=== PATIENT | male | born 1950 | race Caucasian/White ===

== ENCOUNTER 2021-02-01 03:56 | Inpatient (IN) | payer MEDICARE ==
[2021-02-01 04:12] VITALS: PULSE 70
[2021-02-01 04:40] LABS: Basophils % (A) 0 %; Eosinophils % (A) 0 %; HCT 41.7 % (39.0-53.0); HGB 13.9 gm/dL (13.0-17.5); Lymphocytes # (A) 0.6 k/uL (1.0-4.8); Lymphocytes % (A) 7 %; MCH 31.4 pg (25.0-35.0); MCHC 33.4 g/dL (31.0-37.0); MCV 94.2 fL (80.0-100.0); Mean Platelet Volume 7.9; Monocytes # (A) 0.3 k/uL (0-1.0); Monocytes % (A) 4 %; Neutrophils # (A) 7.4 k/uL (1.3-7.7); Neutrophils % (A) 88 %; Platelet Count 118 k/uL (150-450); RBC 4.43 m/uL (4.30-5.90); RDW 14.7 % (11.5-15.5); WBC 8.5 k/uL (3.8-10.6)
--- NOTE | 2021-02-01 04:45 | XR ---
EXAMINATION TYPE: XR chest 1V portable DATE OF EXAM: 02/01/2021 COMPARISON: NONE HISTORY: Short of breath TECHNIQUE: Single view FINDINGS: Heart is enlarged. There is some coarsening of the interstitial markings. There is left axi llary pacemaker. There is linear density at the lung bases consistent with atelectasis. IMPRESSION: No heart failure. Atelectasis at the lung bases. Cardiomegaly.
--- NOTE | 2021-02-01 04:48 | ED ---
SOB HPI - General Chief Complaint: Shortness of Breath Stated Complaint: JAVIER Time Seen by Provider: 02/01/21 04:05 Source: EMS Mode of arrival: EMS Limitations: no limitations - History of Present Illness Initial Comments: This patient is 70-year-old man with history of COPD and CHF who presents to be evaluated for dyspnea. The patient states that his breathing has not been normal for a number of days, was getting progressively worse and then tonight became worse. Patient had not noted fever or chills. There is no productive cough. No chest pain. No change in bowel movements or urination. No leg pain or swelling. Patient scheduled to have watchman device implanted tomorrow at [facility]. Complaint: shortness of breath -: days(s) Severity scale (1-10): 0 Consistency: constant Improves With: upright position Worsens With: lying flat Known History Of: COPD, congestive heart failure Associated Symptoms: other (Headache) Treatments Prior to Arrival: oxygen, NIPPV - Related Data Allergies Allergy/AdvReac Type Severity Reaction Status Date / Time No Known Allergies Allergy Verified 02/01/21 04:12 Review of Systems ROS Statement: Those systems with pertinent positive or pertinent negative responses have been documented in the HPI. ROS Other: All systems not noted in ROS Statement are negative. Constitutional: Reports: chills. Denies: fever Respiratory: Reports: cough, dyspnea. Denies: wheezes Cardiovascular: Reports: orthopnea. Denies: chest pain, palpitations, edema, syncope Gastrointestinal: Denies: abdominal pain, nausea, vomiting, diarrhea Genitourinary: Denies: dysuria, hematuria Musculoskeletal: Denies: back pain Skin: Denies: rash Neurological: Denies: headache Past Medical History Past Medical History: Heart Failure, COPD History of Any Multi-Drug Resistant Organisms: None Reported Past Surgical History: Bowel Resection, Pacemaker Past Psychological History: No Psychological Hx Reported Smoking Status: Never smoker Past Alcohol Use History: None Reported Past Drug Use History: None Reported General Exam Limitations: no limitations General appearance: alert, in distress Head exam: Present: atraumatic, normocephalic Eye exam: Present: normal appearance. Absent: scleral icterus, conjunctival injection ENT exam: Present: normal oropharynx Neck exam: Present: normal inspection Respiratory exam: Present: respiratory distress, wheezes, rales (Bilateral bases), accessory muscle use, decreased breath sounds. Absent: rhonchi, stridor Cardiovascular Exam: Present: regular rate, normal rhythm, normal heart sounds. Absent: systolic murmur, diastolic murmur, rubs, gallop GI/Abdominal exam: Present: soft. Absent: distended, tenderness, guarding, rebound, rigid, mass Extremities exam: Present: normal inspection, normal capillary refill, pedal edema. Absent: calf tenderness Back exam: Present: normal inspection. Absent: CVA tenderness (R), CVA tenderness (L) Neurological exam: Present: alert Skin exam: Present: warm, dry, intact, normal color. Absent: rash Course Vital Signs 02/01/21 03:58 Temperature 99.8 F H Pulse Rate 70 Respiratory 20 Rate Blood Pressure 139/90 O2 Sat by Pulse 94 L Oximetry - Reevaluation(s) Reevaluation #1: 02/01/21 06:05 At family request, I discussed the patient's case with the transfer team for [facility], and they are not able to accept the patient for transfer as they are over capacity. The patient and family are kept updated on the situation. Medical Decision Making - Lab Data Result diagrams: 02/01/21 04:22 02/01/21 04:22 Lab Results 02/01/21 02/01/21 02/01/21 Range/Units 04:22 04:22 04:22 WBC 8.5 (3.8-10.6) k/uL RBC 4.43 (4.30-5.90) m/uL Hgb 13.9 (13.0-17.5) gm/dL Hct 41.7 (39.0-53.0) % MCV 94.2 (80.0-100.0) fL MCH 31.4 (25.0-35.0) pg MCHC 33.4 (31.0-37.0) g/dL RDW 14.7 (11.5-15.5) % Plt Count 118 L (150-450) k/uL MPV 7.9 Neutrophils % 88 % Lymphocytes % 7 % Monocytes % 4 % Eosinophils % 0 % Basophils % 0 % Neutrophils # 7.4 (1.3-7.7) k/uL Lymphocytes # 0.6 L (1.0-4.8) k/uL Monocytes # 0.3 (0-1.0) k/uL Eosinophils # 0.0 (0-0.7) k/uL Basophils # 0.0 (0-0.2) k/uL PT 12.3 H (9.0-12.0) sec INR 1.2 H (<1.2) APTT 25.2 (22.0-30.0) sec D-Dimer 0.56 (<0.60) mg/L FEU Sodium 131 L (137-145) mmol/L Potassium 4.5 (3.5-5.1) mmol/L Chloride 94 L (98-107) mmol/L Carbon Dioxide 26 (22-30) mmol/L Anion Gap 11 mmol/L BUN 22 H (9-20) mg/dL Creatinine 0.74 (0.66-1.25) mg/dL Est GFR (CKD-EPI)AfAm >90 (>60 ml/min/1.73 sqM) Est GFR (CKD-EPI)NonAf >90 (>60 ml/min/1.73 sqM) Glucose 159 H (74-99) mg/dL Plasma Lactic Acid Olivier (0.7-2.0) mmol/L Calcium 9.0 (8.4-10.2) mg/dL Total Bilirubin 2.5 H (0.2-1.3) mg/dL AST 44 (17-59) U/L ALT 20 (4-49) U/L Alkaline Phosphatase 131 H (38-126) U/L Troponin I (0.000-0.034) ng/mL NT-Pro-B Natriuret Pep pg/mL Total Protein 7.3 (6.3-8.2) g/dL Albumin 4.2 (3.5-5.0) g/dL Coronavirus (PCR) (Not Detectd) 02/01/21 02/01/21 02/01/21 Range/Units 04:22 04:22 04:22 WBC (3.8-10.6) k/uL RBC (4.30-5.90) m/uL Hgb (13.0-17.5) gm/dL Hct (39.0-53.0) % MCV (80.0-100.0) fL MCH (25.0-35.0) pg MCHC (31.0-37.0) g/dL RDW (11.5-15.5) % Plt Count (150-450) k/uL MPV Neutrophils % % Lymphocytes % % Monocytes % % Eosinophils % % Basophils % % Neutrophils # (1.3-7.7) k/uL Lymphocytes # (1.0-4.8) k/uL Monocytes # (0-1.0) k/uL Eosinophils # (0-0.7) k/uL Basophils # (0-0.2) k/uL PT (9.0-12.0) sec INR (<1.2) APTT (22.0-30.0) sec D-Dimer (<0.60) mg/L FEU Sodium (137-145) mmol/L Potassium (3.5-5.1) mmol/L Chloride (98-107) mmol/L Carbon Dioxide (22-30) mmol/L Anion Gap mmol/L BUN (9-20) mg/dL Creatinine (0.66-1.25) mg/dL Est GFR (CKD-EPI)AfAm (>60 ml/min/1.73 sqM) Est GFR (CKD-EPI)NonAf (>60 ml/min/1.73 sqM) Glucose (74-99) mg/dL Plasma Lactic Acid Olivier 1.9 (0.7-2.0) mmol/L Calcium (8.4-10.2) mg/dL Total Bilirubin (0.2-1.3) mg/dL AST (17-59) U/L ALT (4-49) U/L Alkaline Phosphatase (38-126) U/L Troponin I <0.012 (0.000-0.034) ng/mL NT-Pro-B Natriuret Pep 2290 pg/mL Total Protein (6.3-8.2) g/dL Albumin (3.5-5.0) g/dL Coronavirus (PCR) (Not Detectd) 02/01/21 Range/Units 04:22 WBC (3.8-10.6) k/uL RBC (4.30-5.90) m/uL Hgb (13.0-17.5) gm/dL Hct (39.0-53.0) % MCV (80.0-100.0) fL MCH (25.0-35.0) pg MCHC (31.0-37.0) g/dL RDW (11.5-15.5) % Plt Count (150-450) k/uL MPV Neutrophils % % Lymphocytes % % Monocytes % % Eosinophils % % Basophils % % Neutrophils # (1.3-7.7) k/uL Lymphocytes # (1.0-4.8) k/uL Monocytes # (0-1.0) k/uL Eosinophils # (0-0.7) k/uL Basophils # (0-0.2) k/uL PT (9.0-12.0) sec INR (<1.2) APTT (22.0-30.0) sec D-Dimer (<0.60) mg/L FEU Sodium (137-145) mmol/L Potassium (3.5-5.1) mmol/L Chloride (98-107) mmol/L Carbon Dioxide (22-30) mmol/L Anion Gap mmol/L BUN (9-20) mg/dL Creatinine (0.66-1.25) mg/dL Est GFR (CKD-EPI)AfAm (>60 ml/min/1.73 sqM) Est GFR (CKD-EPI)NonAf (>60 ml/min/1.73 sqM) Glucose (74-99) mg/dL Plasma Lactic Acid Olivier (0.7-2.0) mmol/L Calcium (8.4-10.2) mg/dL Total Bilirubin (0.2-1.3) mg/dL AST (17-59) U/L ALT (4-49) U/L Alkaline Phosphatase (38-126) U/L Troponin I (0.000-0.034) ng/mL NT-Pro-B Natriuret Pep pg/mL Total Protein (6.3-8.2) g/dL Albumin (3.5-5.0) g/dL Coronavirus (PCR) Not Detected (Not Detectd) - EKG Data -: EKG Interpreted by Dc EKG shows normal: intervals (QRS duration 170 ms, consistent with paced rhythm), QRS complexes (Wide-complex QRS consistent with paced rhythm) Rate: normal (The rhythm is ventricular paced, rate 70 bpm) Disposition Referrals: None,Stated [Primary Care Provider] - 1-2 days
[2021-02-01 04:53] LABS: INR 1.2 (<1.2); Partial Thromboplastin Time 25.2 sec (22.0-30.0); Prothrombin Time 12.3 sec (9.0-12.0)
[2021-02-01 05:12] LABS: ALT 20 U/L (4-49); AST 44 U/L (17-59); African American GFR (CKD) >90 (>60 ml/min/1.73 sqM); Albumin 4.2 g/dL (3.5-5.0); Alkaline Phosphatase 131 U/L (38-126); Anion Gap 11 mmol/L; Blood Urea Nitrogen 22 mg/dL (9-20); Carbon Dioxide 26 mmol/L (22-30); Chloride 94 mmol/L (98-107); Glucose 159 mg/dL (74-99); Non-African American GFR(CKD) >90 (>60 ml/min/1.73 sqM); Potassium 4.5 mmol/L (3.5-5.1); Sodium 131 mmol/L (137-145); Total Bilirubin 2.5 mg/dL (0.2-1.3); Total Protein 7.3 g/dL (6.3-8.2)
[2021-02-01] MEDS ORDERED: NITROGLYCERIN OINT 1 INCH/GM PACKET TOPICAL STA (06:32)
[2021-02-01] MEDS ORDERED: FUROSEMIDE 10 MG/ML 4 ML VIAL IV STA (06:33)
[2021-02-01] MEDS ORDERED: NITROGLYCERIN OINT 1 INCH/GM PACKET TOPICAL SCH (06:45)
[2021-02-01] MEDS: IPRATROPIUM-ALBUTEROL 3 ML NEB INHALATION SCH ×2 (07:07→10:53)
[2021-02-01] MEDS ORDERED: BUDESONIDE 0.5 MG/2 ML NEBU INHALATION SCH (08:00)
[2021-02-01] MEDS ORDERED: AZITHROMYCIN 500 MG TAB PO SCH (09:00)
[2021-02-01] MEDS ORDERED: predniSONE 20 MG TAB PO SCH (09:00)
[2021-02-01 10:44] VITALS: BP 113/66; RESP 19; TEMP 98.6
--- NOTE | 2021-02-01 12:05 | ECHOF ---
Referral Reason:CHF exacerbation MEASUREMENTS -------- HEIGHT: 175.3 cm WEIGHT: 111.1 kg BP: RVIDd: 3.2 cm (< 3.3) IVSd: 1.2 cm (0.6 - 1.1) LVIDd: 5.0 cm (3.9 - 5.3) LVPWd: 1.5 cm (0.6 - 1.1) IVSs: 1.3 cm LVIDs: 3.6 cm LVPWs: 1.6 cm LA Diam: 5.8 cm (2.7 - 3.8) Ao Diam: 3.3 cm (2.0 - 3.7) LA Diam: 6.7 cm (2.7 - 3.8) MV E Osorio: 0.71 m/s MV DecT: 225 ms MV A Osorio: 0.22 m/s MV E/A Ratio: 3.25 RAP: 5.00 mmHg RVSP: 11.42 mmHg FINDINGS -------- Sinus rhythm. Pacerwire seen in RV and RA. This was a technically difficult study with suboptimal views. This was a techncally difficult study with suboptimal views, , Lumason utilized for enhancement of images. The left ventricular size is normal. There is mild concentric left ventricular hypertrophy. Overa ll left ventricular systolic function is normal with, an EF between 55 - 60 %. The right ventricle is normal in size. The left atrium is markedly dilated. The right atrial size is normal. There is mild aortic valve sclerosis. There is no evidence of aortic regurgitation. Mild mitral annular calcification present. Mild mitral regurgitation is present. The tricuspid valve appears structurally normal. No regurgitation noted Unable to estimate RVSP d ue to inadequate TR jet spectral doppler profile. The pulmonic valve was not well visualized. The aortic root size is normal. There is no pericardial effusion. CONCLUSIONS -------- 1. Pacerwire seen in RV and RA. 2. This was a technically difficult study with suboptimal views. 3. This was a techncally difficult study with suboptimal views, , Lumason utilized for enhancement of images. 4. Overall left ventricular systolic function is normal with, an EF between 55 - 60 %. 5. The left atrium is markedly dilated. 6. There is mild aortic valve sclerosis. 7. Mild mitral regurgitation is present. 8. No regurgitation noted 9. There is no pericardial effusion. [employer]EDING [employer]ER COUNSELOR: Carlyn Nolasco RDCS
--- NOTE | 2021-02-01 16:55 | P.HPIM ---
History of Present Illness H&P Date: 02/01/21 Chief Complaint: sob 70-year-old man with history of COPD and CHF who presents for sob pogressively worsening for the past few days. Has chronic cough that is not very productive. Also had fevers and chills. No sick contacts. No chest pain. No change in bowel movements or urination. No leg pain or swelling. Patient scheduled to have watchman device implanted tomorrow at [facility]. In the emergency department patient had a fever of 100.2, was hypoxic, had to be started on BiPAP for respiratory distress and hypoxia. EKG showed a paced rhythm, chest x-ray bibasilar atelectasis with cardiomegaly. No acute infiltrates found. Laboratory analysis did not reveal leukocytosis. BUN 22, creatinine 0.74, sodium 131. Rest of labs okay. Review of Systems Complete review of system performed, pertinent positives per HPI, otherwise negative Past Medical History Past Medical History: Heart Failure, COPD History of Any Multi-Drug Resistant Organisms: None Reported Past Surgical History: Bowel Resection, Pacemaker Past Psychological History: No Psychological Hx Reported Smoking Status: Never smoker Past Alcohol Use History: None Reported Past Drug Use History: None Reported Medications and Allergies Home Medications Medication Instructions Recorded Confirmed Type Apixaban [Eliquis] 5 mg PO Q12H 02/01/21 02/01/21 History Azithromycin [Zithromax] 250 mg PO MOWEFR 02/01/21 02/01/21 History Buprenorphine [Butrans 10 MCG/HOUR] 1 patch TRANSDERM SA 02/01/21 02/01/21 History Desmopressin [Ddavp] 0.2 mg PO HS 02/01/21 02/01/21 History Ferrous Sulfate [Feosol] 325 mg PO DAILY 02/01/21 02/01/21 History Furosemide [Lasix] 40 mg PO DAILY 02/01/21 02/01/21 History Gabapentin 600 mg PO BID 02/01/21 02/01/21 History Latanoprost [Xalatan 0.005%] 1 drop BOTH EYES HS 02/01/21 02/01/21 History Losartan [Cozaar] 25 mg PO Q12H 02/01/21 02/01/21 History Metoprolol Succinate [Toprol XL] 25 mg PO DAILY 02/01/21 02/01/21 History Montelukast [Singulair] 10 mg PO DAILY 02/01/21 02/01/21 History Omeprazole 20 mg PO DAILY 02/01/21 02/01/21 History Tamsulosin [Flomax] 0.4 mg PO DAILY 02/01/21 02/01/21 History Tiotropium 2.5 Mcg/Puff [Spiriva 1 puff INHALATION RT-BID 02/01/21 02/01/21 History Respimat 2.5 Mcg] oxyCODONE-APAP 5-325MG [Percocet 1 tab PO TID PRN 02/01/21 02/01/21 History 5-325 mg] Allergies Allergy/AdvReac Type Severity Reaction Status Date / Time No Known Allergies Allergy Verified 02/01/21 10:27 Physical Exam Vitals: Vital Signs Temp Pulse Resp BP Pulse Ox 02/01/21 11:04 70 02/01/21 10:53 70 02/01/21 10:09 98.6 F 70 19 113/66 97 02/01/21 07:29 70 02/01/21 07:08 70 02/01/21 06:47 100.2 F H 70 18 138/79 96 02/01/21 05:00 70 18 155/70 98 02/01/21 03:58 99.8 F H 70 20 139/90 94 L Intake and Output 02/01/21 02/01/21 02/01/21 06:59 14:59 22:59 Other: Weight 111.13 kg Constitutional: No acute distress, conversant, pleasant Eyes:Anicteric sclerae, moist conjunctiva, no lid-lag, PERRLA, ENMT: Oropharynx clear, no erythema, exudates Neck: Supple, FROM, no masses, or JVD, No carotid bruits, No thyromegaly Lungs: Diminished breath sounds bilaterally, scattered rhonchi, Clear to percussion, Normal respiratory effort, no accessory muscle use Cardiovascular: Heart regular in rate and rhythm, No murmurs, gallops, or rubs, No peripheral edema Abdominal: Soft, Nontender, no guarding, rebound or rigidity, Normoactive bowel sounds, No hepatomegaly, No splenomegaly, No palpable mass Skin: Normal temperature, tone, texture, turgor, no induration, No subcutaneous nodules, No rash, lesions, No ulcers Extremities: No digital cyanosis, No clubbing, Pedal pulses intact and symmetrical, Radial pulses intact and symmetrical, No calf tenderness Psychiatric: Alert and oriented to person, place and time, appropriate affect, intact judgement Neuro: Muscles Strength 5/5 in all 4 extremities, Sensation to light touch grossly present throughout, Cranial nerves II-XII grossly intact, no focal sensory deficits Results CBC & Chem 7: 02/01/21 04:22 02/01/21 04:22 Labs: Abnormal Lab Results - Last 24 Hours (Table) 02/01/21 02/01/21 02/01/21 Range/Units 04:22 04:22 04:22 Plt Count 118 L (150-450) k/uL Lymphocytes # 0.6 L (1.0-4.8) k/uL PT 12.3 H (9.0-12.0) sec INR 1.2 H (<1.2) Sodium 131 L (137-145) mmol/L Chloride 94 L (98-107) mmol/L BUN 22 H (9-20) mg/dL Glucose 159 H (74-99) mg/dL Total Bilirubin 2.5 H (0.2-1.3) mg/dL Alkaline Phosphatase 131 H (38-126) U/L Assessment and Plan Plan: Acute on chronic hypoxemic respiratory failure Acute COPD exacerbation Acute CHF exacerbation unknown type Bipap O2 supplements to keep sats above 92% Lasix, steroids and antibiotics. Admit to inpatient.
--- NOTE | 2021-02-01 16:59 | P.DS ---
Providers Date of admission: 02/01/21 06:27 Expected date of discharge: 02/01/21 Attending physician: Eleni Seay MD Primary care physician: Stated None Hospital Course: 70-year-old man with history of COPD and CHF who presents for sob pogressively worsening for the past few days. Has chronic cough that is not very productive. Also had fevers and chills. No sick contacts. No chest pain. No change in bowel movements or urination. No leg pain or swelling. Patient scheduled to have watchman device implanted tomorrow at [facility]. In the emergency department patient had a fever of 100.2, was hypoxic, had to be started on BiPAP for respiratory distress and hypoxia. EKG showed a paced rhythm, chest x-ray bibasilar atelectasis with cardiomegaly. No acute infiltrates found. Laboratory analysis did not reveal leukocytosis. BUN 22, creatinine 0.74, sodium 131. Rest of labs okay. Patient was kept on BiPAP however he stated that he wants to be transferred to [place] because all of his physicians over there. [place] was called and the transfer center stated that the hospital was not taking any transfers because they are at full capacity right now. That information was relayed to the patient and his daughter, however both insisted on leaving to [place]. They understand the risks of leaving including and worsening of current condition. Patient signed out against medical advise. Time for discharge 36 min Plan - Discharge Summary New Discharge Prescriptions: No Action Tamsulosin [Flomax] 0.4 mg PO DAILY Latanoprost [Xalatan 0.005%] 1 drop BOTH EYES HS Gabapentin 600 mg PO BID Buprenorphine [Butrans 10 MCG/HOUR] 1 patch TRANSDERM SA Tiotropium 2.5 Mcg/Puff [Spiriva Respimat 2.5 Mcg] 1 puff INHALATION RT-BID Montelukast [Singulair] 10 mg PO DAILY Furosemide [Lasix] 40 mg PO DAILY Losartan [Cozaar] 25 mg PO Q12H Apixaban [Eliquis] 5 mg PO Q12H oxyCODONE-APAP 5-325MG [Percocet 5-325 mg] 1 tab PO TID PRN PRN Reason: Pain Desmopressin [Ddavp] 0.2 mg PO HS Omeprazole 20 mg PO DAILY Ferrous Sulfate [Feosol] 325 mg PO DAILY Azithromycin [Zithromax] 250 mg PO MOWEFR Metoprolol Succinate [Toprol XL] 25 mg PO DAILY Discharge Medication List Apixaban [Eliquis] 5 mg PO Q12H 02/01/21 [History] Azithromycin [Zithromax] 250 mg PO MOWEFR 02/01/21 [History] Buprenorphine [Butrans 10 MCG/HOUR] 1 patch TRANSDERM SA 02/01/21 [History] Desmopressin [Ddavp] 0.2 mg PO HS 02/01/21 [History] Ferrous Sulfate [Feosol] 325 mg PO DAILY 02/01/21 [History] Furosemide [Lasix] 40 mg PO DAILY 02/01/21 [History] Gabapentin 600 mg PO BID 02/01/21 [History] Latanoprost [Xalatan 0.005%] 1 drop BOTH EYES HS 02/01/21 [History] Losartan [Cozaar] 25 mg PO Q12H 02/01/21 [History] Metoprolol Succinate [Toprol XL] 25 mg PO DAILY 02/01/21 [History] Montelukast [Singulair] 10 mg PO DAILY 02/01/21 [History] Omeprazole 20 mg PO DAILY 02/01/21 [History] Tamsulosin [Flomax] 0.4 mg PO DAILY 02/01/21 [History] Tiotropium 2.5 Mcg/Puff [Spiriva Respimat 2.5 Mcg] 1 puff INHALATION RT-BID 02/01/21 [History] oxyCODONE-APAP 5-325MG [Percocet 5-325 mg] 1 tab PO TID PRN 02/01/21 [History] Follow up Appointment(s)/Referral(s): None,Stated [Primary Care Provider] - 1-2 days Discharge Disposition: Left Against Medical Advice
--- NOTE | 2021-02-03 09:14 | CDI ---
Documentation Clarification Form Date: 02/03/2021 09:08:37 AM From: Pranav Foreman Admit Date: 02/01/2021 06:27:00 AM Patient Name: Junior Perez Visit Number: [id number] Discharge Date: 02/01/2021 12:20:00 PM ATTENTION: The Clinical Documentation Specialists (CDI) and [facility] Coding Staff appreciate your assistance in clarifying documentation. Please respond to the clarification below the line at the bottom and electronically sign. The CDI & [facility] Coding staff will review the response and follow-up if needed. Please note: Queries are made part of the Legal Health Record. If you have any questions, please contact the author of this message via ITS. Dr. Idalia Johnston Your patient has the documented diagnosis of unspecified CHF in the discharge summary. Additional information regarding the [type, acuity] of CHF is requested. History/Risk Factors: Clinical Indicators: Echocardiogram Results: EF 55-60 normal systolic function Chest X Ray: atelectasis Treatment: In your professional opinion, can you please clarify the [acuity and type] of CHF if known? [ ] Acute Systolic Heart Failure (reduced EF) [ ] Chronic Systolic Heart Failure (reduced EF) [ ] Acute on Chronic Systolic Heart Failure (reduced EF) [ ] Acute Diastolic Heart Failure (preserved EF) [ ] Chronic Diastolic Heart Failure (preserved EF) [ ] Acute on Chronic Diastolic Heart Failure (preserved EF) [ ] Acute Systolic & Diastolic Heart Failure [ ] Chronic Systolic & Diastolic Heart Failure [ ] Acute on Chronic Heart Failure Systolic & Diastolic Heart Failure [ ] Other, please specify [ ] Unable to determine Acute on Chronic Diastolic Heart Failure [facility]
== END 2021-02-01 12:20 | disposition left against medical advice (07) | DRG 190 ==
LOC: EC 03:56 → 3SCARD 06:27
PROVIDERS: ADMIT Internal Medicine; ATTEND Internal Medicine
PROC: 5A09357 Assistance with Respiratory Ventilation, Less than 24 Consecutive Hours, Continuous Positive Airway Pressure (ICD-10-PCS; principal; 2021-02-01)
DX: J44.1 Chronic obstructive pulmonary disease with (acute) exacerbation (principal); J96.21 Acute and chronic respiratory failure with hypoxia; I50.33 Acute on chronic diastolic (congestive) heart failure; J98.11 Atelectasis; I50.9 Heart failure, unspecified; Z20.822 Contact with and (suspected) exposure to COVID-19; Z79.01 Long term (current) use of anticoagulants; Z79.899 Other long term (current) drug therapy
CPT/HCPCS: 36415; 71045; 80053; 83605; 83880; 84484; 85025; 85379; 85610; 85730; 87635; 93005; 93306; 94660; 99285